=== PATIENT | male | born 1990 | race African-American/Black ===

== ENCOUNTER 2019-05-12 19:49 | Emergency (ER) | payer MEDICAID ==
[~2019-05-12] VITALS: Ht 182.9 cm; Wt 91.0 kg
[2019-05-12] MEDS ORDERED: KETOROLAC 30MG/ML VIAL IM ONE (22:30)
[2019-05-12 22:40] VITALS: BP 128/74
== END 2019-05-12 22:40 | disposition home or self-care (01) ==
LOC: ER 19:49
DX: M54.89 Other dorsalgia (principal); V49.50XA Passenger injured in collision with unspecified motor vehicles in traffic accident, initial encounter; Y93.89 Activity, other specified; Y92.410 Unspecified street and highway as the place of occurrence of the external cause
CPT/HCPCS: 96372; 99283; J1885